=== PATIENT | female | born 1985 | race Caucasian/White ===

== ENCOUNTER → 2018-11-30 | Outpatient (CLI) | payer MEDICAID ==
--- NOTE | 2018-11-30 12:01 | Diagnostic Imaging Report ---
INDICATION: survey. TECHNIQUE: Multiple real-time grayscale images were obtained over the gravid uterus. COMPARISON: None. FINDINGS: There is a single live fetus in a transverse presentation, head to the maternal left. heart rate was recorded at 128 beats per minute. Placenta is posterior. Amniotic fluid volume is normal. survey demonstrates kidneys, bladder, and stomach to be unremarkable. brain is unremarkable. There is a four-chamber heart. There appears to be a two-vessel cord with normal insertion. spine is unremarkable. Biometrical measurements are as follows: Biparietal 5.17 cm, age 21 weeks 5 days. Head circumference 20.43 cm, age 22 weeks 4 days. Abdominal circumference 17.20 cm, age 22 weeks 2 days. Femur length 3.99 cm, age 23 weeks 0 days. Sonographic estimate age: 22 weeks 3 days. Sonographic estimated date of delivery: 04/02/2019. Estimated Weight: 505 gm (+/- 74 gm). LMP percentile: 60%. heart rate: 128 beats per minute. number: 1 of 1. IMPRESSION: Single live IUP at 22 weeks 3 days gestational age with an estimated date of confinement sonographically of 04/02/2019. The survey is unremarkable with the exception of a two-vessel cord noted. Dictated by: Dictated on workstation # [id number]
== END ==
LOC: RAD 10:09
PROVIDERS: ATTEND Obstetrics & Gynecology
DX: Z36.89 Encounter for other specified antenatal screening (principal); Z3A.22 22 weeks gestation of pregnancy
CPT/HCPCS: 76805

== ENCOUNTER 2019-01-26 21:49 | Outpatient (CLI) | payer MEDICAID ==
[~2019-01-26] VITALS: Ht 157.5 cm; Wt 67.8 kg
[2019-01-26] MEDS ORDERED: PREN1TAB79 PO (21:58)
[2019-01-26] MEDS ORDERED: FERR-84 PO (21:58)
--- NOTE | 2019-01-26 22:00 | NUR ---
RICCI ANGELA presented to unit via ambulation from ED, accompanied by family member, with c/o PRESSURE. RICCI ANGELA weighed, gowned, voided, and to bed. EFHM and TOCO applied, VS taken. RICCI ANGELA oriented to bed controls, call light, TV, heat, and A/C controls.
--- NOTE | 2019-01-26 22:08 | NUR ---
amnio negative. pt denies vaginal discharge, itching, odor, bleeding or leaking. No swelling noted on labia. sve done. closed/thick/high. noticed tick bite on right medial upper thigh see physical assessment. +FM. pt states has had lower abdominal and perineum pressure for weeks but noticed increased pressure and felt like "everything in the vagina" was opening when she went to the bathroom.
[2019-01-26 22:12] LABS: BILIRUBIN,URINE NEGATIVE (NEGATIVE); CLARITY,URINE VERY CLOUDY; COLOR,URINE YELLOW; GLUCOSE, URINE (UA) NEGATIVE (NEGATIVE); KETONES,URINE NEGATIVE (NEGATIVE); LEUKOCYTE ESTERASE ,URINE 1+ (NEGATIVE); NITRITE,URINE NEGATIVE (NEGATIVE); PH,URINE 8 (5-9); PROTEIN,URINE NEGATIVE (NEGATIVE); UROBILINOGEN,URINE NORMAL (NORMAL)
[2019-01-26 22:16] VITALS: BP 116/66
[2019-01-26 22:19] LABS: AMORPHOUS SEDIMENT,UR MOD AMOR PHOSPHATE /LPF; BACTERIA,URINE TRACE /HPF; WBC,URINE RARE /HPF
--- NOTE | 2019-01-26 22:33 | NUR ---
called and notified of pt's complaints, assessment, UA, and strip. dc orders received. pt to follow up with this week.
--- NOTE | 2019-01-26 22:36 | NUR ---
pt off external monitors. no contractions noted during this time. FHR 125-135 bpm. moderate variability noted.
--- NOTE | 2019-01-26 22:45 | NUR ---
discharge instructions read and reviewed with pt, pt verbalized understanding. [id number] pt ambulated off unit.
--- NOTE | 2019-01-27 21:14 | Physician Query-Final Dx ---
ORLANDO VALDEZ 01/27/19 2113: Final Diagnosis Give Final Diagnosis Please give Final Diagnosis Please give Final Diagnosis and add weeks of gestation JOSÉ ANTONIO FERREIRA DO 02/18/19 1748: Final Diagnosis Give Final Diagnosis 30 weeks pelvic pressure ORLANDO VALDEZ Jan 27, 2019 21:13 JOSÉ ANTONIO FERREIRA DO Feb 18, 2019 17:48
== END 2019-01-26 22:48 | disposition home or self-care (01) ==
LOC: WSo 21:49 → LDRP 21:52 → WSo 22:48
PROVIDERS: ATTEND Obstetrics & Gynecology
DX: O26.893 Other specified pregnancy related conditions, third trimester (principal); R10.2 Pelvic and perineal pain; Z3A.30 30 weeks gestation of pregnancy
CPT/HCPCS: 81000; 87088; 99213

== ENCOUNTER → 2019-02-19 | Outpatient (CLI) | payer BC, MEDICAID ==
[~2019-02-19] MED LIST: FERR-84 PO; PREN1TAB79 PO
--- NOTE | 2019-02-19 17:18 | Diagnostic Imaging Report ---
INDICATION: Gestational diabetes. TECHNIQUE: Multiple real-time grayscale images were obtained over the gravid uterus. COMPARISON: 02/11/2019. FINDINGS: A single live intrauterine fetus is seen measuring 34 weeks 2 days in size with normal interval growth compared to the prior study. Fetus is in cephalic presentation. Placenta is posterior and grade 2 with no evidence of previa. heart rate is 128 beats per minute. Cervical length is 5.7 cm. Biometrical measurements are as follows: Biparietal 8.23 cm, age 33 weeks 1 days. Head circumference 31.82 cm, age 35 weeks 6 days. Abdominal circumference 28.46 cm, age 32 weeks 4 days. Femur length 6.93 cm, age 35 weeks 4 days. Sonographic estimate age: 34 weeks 2 days. Sonographic estimated date of delivery: 03/31/2019. Estimated Weight: 2277 gm (+/- 332 gm). LMP percentile: 45%. heart rate: 128 beats per minute. number: 1 of 1. Biophysical profile was also performed. Fetus scored 2/2 in breathing, movements, posture and tone, and qualitative amniotic fluid. Amniotic fluid index was 12.1 cm. IMPRESSION: Single live intrauterine fetus measuring 34 weeks 2 days in size with normal interval growth compared to the prior study. Fetus is in cephalic presentation. biophysical profile score is 8/8. Dictated by: Dictated on workstation # [id number]
== END ==
LOC: RAD 15:15
PROVIDERS: ATTEND Nurse Practitioner Women's Health
DX: O24.419 Gestational diabetes mellitus in pregnancy, unspecified control (principal); Z3A.34 34 weeks gestation of pregnancy
CPT/HCPCS: 76805; 76819

== ENCOUNTER → 2019-03-11 | Outpatient (CLI) | payer BC, MEDICAID ==
--- NOTE | 2019-03-11 15:34 | Diagnostic Imaging Report ---
INDICATION: Evaluate growth. TECHNIQUE: Multiple real-time grayscale images were obtained over the gravid uterus. COMPARISON: 02/19/2019. FINDINGS: There is a single live fetus in a cephalic presentation. heart rate was recorded at 134 beats per minute. Placenta is posterior. Amniotic fluid index is 13.2 cm. Biophysical profile score is normal at 8/8. Biometrical measurements are as follows: Biparietal 8.86 cm, age 35 weeks 6 days. Head circumference 32.40 cm, age 36 weeks 5 days. Abdominal circumference 32.15 cm, age 36 weeks 1 days. Femur length 6.99 cm, age 35 weeks 6 days. Sonographic estimate age: 36 weeks 1 days. Sonographic estimated date of delivery: 04/07/2019. Estimated Weight: 2836 gm (+/- 414 gm). LMP percentile: 39%. heart rate: 134 beats per minute. number: 1 of 1. IMPRESSION: Single live IUP at approximately 36 weeks gestational age, showing normal interval growth. Biophysical profile score is normal at 8/8. Dictated by: Dictated on workstation # [id number]
== END ==
LOC: RAD 14:31
PROVIDERS: ATTEND Obstetrics & Gynecology
DX: O24.410 Gestational diabetes mellitus in pregnancy, diet controlled (principal); Z3A.36 36 weeks gestation of pregnancy; Q27.0 Congenital absence and hypoplasia of umbilical artery
CPT/HCPCS: 76805; 76819

== ENCOUNTER 2019-03-18 10:16 | Outpatient (CLI) | payer BC, MEDICAID ==
[~2019-03-18] VITALS: Ht 157.5 cm; Wt 71.7 kg
--- NOTE | 2019-03-18 10:05 | NUR ---
Arrived to unit via ambulation. pt c/o "losing mucus plug today, and I was supposed to see dr cabezas today but she is sick." Wt obtained and to room 318. Wt obtained, gowned and urine sample. Plan of care reviewed with pt. To bed and monitors on.
[2019-03-18 10:25] VITALS: BP 126/76
[2019-03-18 10:31] VITALS: BP 126/76
--- NOTE | 2019-03-18 10:54 | NUR ---
Dr Srinivasan notified of pt arrival, gestation, c/o, assessment, fhr pattern, no contractions noted. will continue to monitor for reactive tracing.
--- NOTE | 2019-03-18 11:30 | NUR ---
Rn to pt bedside and reviewed plan of care. reactive NST noted. pt had called office downstairs to request to be induced. Rn discussed with pt that an appt was made for her to see dr cabezas tomorrow in clinic for evaluation. pt tearful. RN asked pt if she had any other concerns or problems going on at this time and she reports "my back just hurts." pt denied needs from rn or for rn to call clinic to ask for pain medication for pt.
--- NOTE | 2019-03-18 11:45 | NUR ---
Discharge instructions explained, signed and copy to pt. pt reports understanding of instructions and denied questions. Pt ambulates self off unit to private vehicle with belongings in hand.
--- NOTE | 2019-03-19 09:49 | Physician Query-Final Dx ---
ZANA MAGUIRE 03/19/19 0949: Clinic Account Progress/Dx Physician Query: Please give diagnosis Please give # weeks gestation Date of Service Mar 18, 2019 at 10:16 SAMUEL GRIFFIN DO 03/21/19 1701: Clinic Account Progress/Dx DIAGNOSIS: Diagnosis 36 week iup Irregular contractions ZANA MAGUIRE Mar 19, 2019 09:49 SAMUEL GRIFFIN DO Mar 21, 2019 17:01
[2019-03-21] MEDS ORDERED: ACET-77 PO (07:32)
[2019-03-21] MEDS ORDERED: IBUP-1773 PO (08:42)
== END 2019-03-18 11:45 | disposition home or self-care (01) ==
LOC: WSo 10:16 → LDRP 10:16 → WSo 11:45
PROVIDERS: ATTEND Obstetrics & Gynecology
DX: O62.8 Other abnormalities of forces of labor (principal); Z3A.36 36 weeks gestation of pregnancy
CPT/HCPCS: 99212

== ENCOUNTER 2019-03-19 12:20 | Inpatient (IN) | payer BC, MEDICAID ==
[~2019-03-19] VITALS: Ht 157.5 cm; Wt 70.5 kg
[2019-03-19] VITALS (21 sets, daily range): BP systolic 100–166; BP diastolic 63–83
--- NOTE | 2019-03-19 12:20 | NUR ---
RICCI ANGELA presented to unit via AMBULATORY from DR FERREIRA OFFICE, accompanied by , with c/o LABOR. RICCI ANGELA weighed, gowned, voided, and to bed. EFHM and TOCO applied, VS taken. RICCI ANGELA oriented to bed controls, call light, TV, heat, and A/C controls.
[2019-03-19] MEDS ORDERED: NS IV 1000 ML 1,000 ML IV SCH (12:49)
[2019-03-19] MEDS ORDERED: NS IV 1000 ML 1,000 ML ONE (12:53)
[2019-03-19 13:20] LABS: BASOPHILS % (AUTO) 0 % (0-10); EOSINOPHILS # (AUTO) 0.1 10^3/uL (0.0-0.3); EOSINOPHILS % (AUTO) 1 % (0-10); HEMATOCRIT 35 % (35-52); HEMOGLOBIN 11.8 G/DL (11.5-16.0); LYMPHOCYTES # (AUTO) 1.6 X 10^3 (1.0-4.0); LYMPHOCYTES % (AUTO) 15 % (12-44); MEAN CORPUSCULAR HEMOGLOBIN 30 PG (25-34); MEAN CORPUSCULAR HGB CONC 34 G/DL (32-36); MEAN CORPUSCULAR VOLUME 90 FL (80-99); MEAN PLATELET VOLUME 10.1 FL (7.4-10.4); MONOCYTES # (AUTO) 0.5 X 10^3 (0.0-1.0); MONOCYTES % (AUTO) 5 % (0-12); NEUTROPHILS # (AUTO) 8.5 X 10^3 (1.8-7.8); NEUTROPHILS % (AUTO) 80 % (42-75); PLATELET COUNT 227 10^3/uL (130-400); RED CELL DISTRIBUTION WIDTH 13.5 % (10.0-14.5); WHITE BLOOD COUNT 10.7 10^3/uL (4.3-11.0)
[2019-03-19] MEDS ORDERED: OXYTOCIN/NORMAL SALINE 500 ML IV SCH ×2 (16:10→20:09)
--- NOTE | 2019-03-19 17:33 | NUR ---
THIS RN GIVE DR FERREIRA UPDATE PT REPORT. TORIE 4CM, PITOCIN ON 6, UC Q 2-3 MIN, RATING PAIN 5/10, BREATHING WELL WITH UC. DOES NOT WANT AN EPIDURAL, STATES SHE WOULD RATHER HAVE IV PAIN MED BUT DOES NOT WANT ANYTHING YET.
[2019-03-19] MEDS ORDERED: BUTORPHANOL INJ 2 MG/ML (STADOL) VIAL IV NR (17:45)
--- NOTE | 2019-03-19 18:52 | NUR ---
THIS RN GIVES DR FERREIRA UPDATED PT REPORT. SVE 5.5 CM. 1 DOSE OF STADOL ADMIN AT 1750. NO NEW ORDERS AT THIS TIME.
--- NOTE | 2019-03-19 19:05 | NUR ---
REPORT GIVEN TO JOSELIN ROWELL
[2019-03-19] MEDS ORDERED: MEPIVACAINE (CARBOCAINE) 2% 50 ML VIAL ONE (19:44)
[2019-03-19] MEDS ORDERED: MINERAL OIL CONCENTRATE 99.9% 15 ML UDC ONE (19:44)
[2019-03-19] MEDS ORDERED: BUTORPHANOL INJ 2 MG/ML (STADOL) VIAL IV ONE (19:45)
--- NOTE | 2019-03-19 20:00 | NUR ---
2000: Fundus massaged at this time. Fundus is firm and at umbilicus. Moderate bleeding noted. No clots expressed at this time. 2014: Fundus massaged at this time. Fundus is firm and at umbilicus. Moderate bleeding noted. No clots expressed at this time. 2029: Fundus massaged at this time. Fundus is firm and at umbilicus. Moderate bleeding noted. No clots expressed at this time. 2034: Pt states that she needs to void at this time. Pad and underwear put on. Pt helped to the bathroom with nurse assist. Pt. voids moderate amount of straw colored urine at this time. Pericare given and taken back to bed. 2044: Fundus massaged at this time. Fundus is firm and one under umbilicus. Moderate bleeding noted. One golfball size clot expressed at this time. 2100: Fundus massaged at this time. Fundus is firm and one under umbilicus. Moderate bleeding noted. No clots expressed at this time. 2129: Fundus massaged at this time. Fundus is firm and one under umbilicus. Moderate bleeding noted. No clots expressed at this time. 2200: Fundus massaged at this time. Fundus is firm and one under umbilicus. Moderate bleeding noted. No clots expressed at this time. Pt states that she is ready to be moved. 2214: Pt moved to via wheelchair. Pt voided again. Clean pad and underwear put. Chuxs pads applied to perineum. Pt back to bed and eating dinner.
--- NOTE | 2019-03-19 20:13 | OB Labor & Delivery Record ---
Vag Delivery Note Vag Delivery Note Date of Delivery: 03/19/19 Preoperative Diagnosis: Daily Gonzalez is a (33 /Para 8 /5 ,Gestational Age 37 4/7 weeks, GBS, non reassuring testing (variable deceleration) Postoperative Diagnosis: Same Surgeon: JOSÉ ANTONIO FERREIRA Orthotic/Prosthetic Practitioner: none Anesthesia: none Delivery Type: vaginal Findings: Viable male , apgars pending, weight pending Lacerations: none Intact placenta with 3 vessel cord. No nuchal cord, body cord or shoulder dystocia Estimated Blood Loss: 150 ml Complications: None Condition: Stable Description of Procedure: The patient is a 33 year old female who presented for labor augmentation due to contractions and variable deceleration in the office. She was admitted and informed consent was obtained. Her labor course was remarkable for arom and pitocin augmentation, She progressed to complete dilatation and began to push. She was then set up for delivery. The 's head was delivered atraumatically in the JAMIE position. The shoulders and remainder of the 's body were then delivered without difficulty. Upon delivery, the head was held below the level of the perineum and the mouth and nares were bulb suctioned. The cord was doubly clamped and cut and the was handed off to the pediatric staff. An intact placenta with 3-vessel cord delivered via [place] and there was found to be minimal bleeding.~ Vigorous fundal massage was performed and the fundus was found to be firm. IV oxytocin was given. Examination of the vagina and perineum revealed no laceration. Following the delivery, sponge, instrument and needle counts were correct. Mom and baby were both in stable condition in the labor suite. Vitals - Labs Vital Signs - I&O Vital Signs Date Time Temp Pulse Resp B/P (MAP) Pulse Ox O2 Delivery O2 Flow Rate FiO2 03/19/19 19:00 67 100/65 (77) Room Air 03/19/19 18:45 36.1 68 108/68 (81) Room Air 03/19/19 18:30 72 103/64 (77) Room Air 03/19/19 18:15 77 103/63 (76) Room Air 03/19/19 18:00 63 112/66 (81) Room Air 03/19/19 17:45 68 112/78 (89) Room Air 03/19/19 17:30 36.4 72 20 111/77 (88) Room Air 03/19/19 17:15 69 110/75 (87) Room Air 03/19/19 17:00 70 110/71 (84) Room Air 03/19/19 16:45 73 109/72 (84) Room Air 03/19/19 16:20 36.3 78 18 116/74 (88) 03/19/19 13:40 36.2 79 16 99 Room Air 03/19/19 12:23 36.7 79 18 121/81 (94) 99 Labs Laboratory Tests 03/19/19 13:00: White Blood Count 10.7, Red Blood Count 3.90L, Hemoglobin 11.8, Hematocrit 35, Mean Corpuscular Volume 90, Mean Corpuscular Hemoglobin 30, Mean Corpuscular Hemoglobin Concent 34, Red Cell Distribution Width 13.5, Platelet Count 227, Mean Platelet Volume 10.1, Neutrophils (%) (Auto) 80H, Lymphocytes (%) (Auto) 15, Monocytes (%) (Auto) 5, Eosinophils (%) (Auto) 1, Basophils (%) (Auto) 0, Neutrophils # (Auto) 8.5H, Lymphocytes # (Auto) 1.6, Monocytes # (Auto) 0.5, Eosinophils # (Auto) 0.1, Basophils # (Auto) 0.0, Glucose Level 74 JOSÉ ANTONIO FERREIRA DO Mar 19, 2019 20:13
[2019-03-19] MEDS ORDERED: BENZOCAINE/MENTHOL (DERMOPLAST) 56 ML CAN TP PRN (20:15)
[2019-03-19] MEDS ORDERED: TETANUS,DIPTH,PERTUSS P/F (BOOSTRIX) 0.5 ML VIAL IM ONE (20:15)
[2019-03-19] MEDS ORDERED: WITCH HAZEL(TUCKS) 40 EA JAR TOP PRN (20:15)
[2019-03-19] MEDS ORDERED: MEASLES,MUMPS,RUBELLA 1 EA INJ SQ ONE (20:15)
[2019-03-19] MEDS ORDERED: CATHETER FLUSH 10 ML SYR IV SCH (22:00)
[2019-03-19] MEDS: ACETAMINOPHEN 500 MG TAB (TYLENOL) PO SCH (22:12)
[2019-03-19] MEDS: DOCUSATE SODIUM 100 MG (COLACE) CAP PO SCH (22:13)
[2019-03-20 00:30] VITALS: BP 95/50
[2019-03-20 04:00] VITALS: BP 93/62
[2019-03-20] MEDS: ACETAMINOPHEN 500 MG TAB (TYLENOL) PO SCH ×3 (05:57→22:19)
[2019-03-20 06:14] LABS: BASOPHILS % (AUTO) 0 % (0-10); EOSINOPHILS # (AUTO) 0.1 10^3/uL (0.0-0.3); EOSINOPHILS % (AUTO) 0 % (0-10); HEMATOCRIT 36 % (35-52); LYMPHOCYTES # (AUTO) 1.9 X 10^3 (1.0-4.0); LYMPHOCYTES % (AUTO) 13 % (12-44); MEAN CORPUSCULAR HEMOGLOBIN 30 PG (25-34); MEAN CORPUSCULAR HGB CONC 33 G/DL (32-36); MEAN CORPUSCULAR VOLUME 91 FL (80-99); MEAN PLATELET VOLUME 9.8 FL (7.4-10.4); MONOCYTES # (AUTO) 0.7 X 10^3 (0.0-1.0); MONOCYTES % (AUTO) 5 % (0-12); NEUTROPHILS # (AUTO) 12.2 X 10^3 (1.8-7.8); NEUTROPHILS % (AUTO) 82 % (42-75); PLATELET COUNT 233 10^3/uL (130-400); RED CELL DISTRIBUTION WIDTH 13.9 % (10.0-14.5); WHITE BLOOD COUNT 14.9 10^3/uL (4.3-11.0)
[2019-03-20] MEDS ORDERED: PRENATAL VITAMIN 1 EA TAB PO SCH (07:00)
[2019-03-20 08:23] VITALS: BP 100/66
[2019-03-20] MEDS: DOCUSATE SODIUM 100 MG (COLACE) CAP PO SCH ×2 (08:25→20:30)
[2019-03-20] MEDS: FERROUS SULF 325 MG (IRON) TAB PO SCH (08:25)
--- NOTE | 2019-03-20 08:32 | NUR ---
PT IN BED, HOLDING , REQUESTING TO TAKE A SHOWER. VS OBTAINED. MEDS GIVEN PO; SEE EMAR FOR FURTHER. IV DC'D. GAUZE AND BAND AID APPLIED OVER SITE. INITIAL SHIFT ASSESSMENT COMPLETED; SEE INTERVENTION. SHOWER SET UP, INFANT TO NURSERY. PT DENIES ANY FURTHER NEEDS AT THIS TIME.
--- NOTE | 2019-03-20 10:42 | Postpartum Progress Note ---
Note Note Day # 1 s/p Subjective: Patient is without complaints. Ambulating, voiding. Tolerating a regular diet w ithout nausea or vomiting. Normal lochia. Pain is well controlled with oral pain medications. breast and bottle feeding. Objective: 03/20/19 03/20/19 03/20/19 00:30 04:00 08:23 Temp 36.9 36.1 36.8 Pulse 75 74 73 Resp 16 18 18 B/P (MAP) 95/50 (65) 93/62 (72) 100/66 (77) Pulse Ox 96 97 O2 Delivery Room Air Room Air Room Air Laboratory Tests Test 03/19/19 13:00 03/20/19 05:34 03/20/19 05:54 Range/Units White Blood Count 10.7 14.9 H 4.3-11.0 10^3/uL Red Blood Count 3.90 L 3.97 L 4.35-5.85 10^6/uL Hemoglobin 11.8 12.0 11.5-16.0 G/DL Hematocrit 35 36 35-52 % Mean Corpuscular Volume 90 91 80-99 FL Mean Corpuscular Hemoglobin 30 30 25-34 PG Mean Corpuscular Hemoglobin Concent 34 33 32-36 G/DL Red Cell Distribution Width 13.5 13.9 10.0-14.5 % Platelet Count 227 233 130-400 10^3/uL Mean Platelet Volume 10.1 9.8 7.4-10.4 FL Neutrophils (%) (Auto) 80 H 82 H 42-75 % Lymphocytes (%) (Auto) 15 13 12-44 % Monocytes (%) (Auto) 5 5 0-12 % Eosinophils (%) (Auto) 1 0 0-10 % Basophils (%) (Auto) 0 0 0-10 % Neutrophils # (Auto) 8.5 H 12.2 H 1.8-7.8 X 10^3 Lymphocytes # (Auto) 1.6 1.9 1.0-4.0 X 10^3 Monocytes # (Auto) 0.5 0.7 0.0-1.0 X 10^3 Eosinophils # (Auto) 0.1 0.1 0.0-0.3 10^3/uL Basophils # (Auto) 0.0 0.0 0.0-0.1 10^3/uL Glucose Level 74 70-105 MG/DL Glucometer 83 70-110 MG/DL Physical Exam: General - Alert and oriented, no apparent distress Abdomen - Soft, appropriately tender to palpation, non-distended, fundus firm at umbilicus Extremities - no edema, negative Matt's bilaterally Assessment: 1. post- day # 1, status post spontaneous vaginal delivery. Recovering well, hemodynamically stable 2. GDM A1, stable Plan: Routine care. Encourage breast feeding. Encourage ambulation. Ferrous sulfate supplementation. Plan for discharge tomorrow or to parent room Vitals - Labs Vital Signs - I&O Vital Signs Date Time Temp Pulse Resp B/P (MAP) Pulse Ox O2 Delivery O2 Flow Rate FiO2 03/20/19 08:23 36.8 73 18 100/66 (77) 97 Room Air 03/20/19 04:00 36.1 74 18 93/62 (72) Room Air 03/20/19 00:30 36.9 75 16 95/50 (65) 96 Room Air 03/19/19 21:04 36.8 78 120/73 (89) Room Air 03/19/19 20:51 68 103/73 (83) Room Air 03/19/19 20:34 37.2 76 125/71 (89) Room Air 03/19/19 20:19 79 127/76 (93) Room Air 03/19/19 20:17 78 124/69 (87) Room Air 03/19/19 20:04 36.5 77 126/70 (88) Room Air 03/19/19 19:50 72 166/67 (100) Room Air 03/19/19 19:34 36.7 67 112/83 (93) Room Air 03/19/19 19:00 67 100/65 (77) Room Air 03/19/19 18:45 36.1 68 108/68 (81) Room Air 03/19/19 18:30 72 103/64 (77) Room Air 03/19/19 18:15 77 103/63 (76) Room Air 03/19/19 18:00 63 112/66 (81) Room Air 03/19/19 17:45 68 112/78 (89) Room Air 03/19/19 17:30 36.4 72 20 111/77 (88) Room Air 03/19/19 17:15 69 110/75 (87) Room Air 03/19/19 17:00 70 110/71 (84) Room Air 03/19/19 16:45 73 109/72 (84) Room Air 03/19/19 16:20 36.3 78 18 116/74 (88) 03/19/19 13:40 36.2 79 16 99 Room Air 03/19/19 12:23 36.7 79 18 121/81 (94) 99 Labs Laboratory Tests 03/19/19 13:00: White Blood Count 10.7, Red Blood Count 3.90L, Hemoglobin 11.8, Hematocrit 35, Mean Corpuscular Volume 90, Mean Corpuscular Hemoglobin 30, Mean Corpuscular Hemoglobin Concent 34, Red Cell Distribution Width 13.5, Platelet Count 227, Ninfa n Platelet Volume 10.1, Neutrophils (%) (Auto) 80H, Lymphocytes (%) (Auto) 15, Monocytes (%) (Auto) 5, Eosinophils (%) (Auto) 1, Basophils (%) (Auto) 0, Neutrophils # (Auto) 8.5H, Lymphocytes # (Auto) 1.6, Monocytes # (Auto) 0.5, Eosinophils # (Auto) 0.1, Basophils # (Auto) 0.0, Glucose Level 74 03/20/19 05:34: White Blood Count 14.9H, Red Blood Count 3.97L, Hemoglobin 12.0, Hematocrit 36, Mean Corpuscular Volume 91, Mean Corpuscular Hemoglobin 30, Mean Corpuscular Hemoglobin Concent 33, Red Cell Distribution Width 13.9, Platelet Count 233, Mean Platelet Volume 9.8, Neutrophils (%) (Auto) 82H, Lymphocytes (%) (Auto) 13, Monocytes (%) (Auto) 5, Eosinophils (%) (Auto) 0, Basophils (%) (Auto) 0, Neutrophils # (Auto) 12.2H, Lymphocytes # (Auto) 1.9, Monocytes # (Auto) 0.7, Eosinophils # (Auto) 0.1, Basophils # (Auto) 0.0 03/20/19 05:54: Glucometer 83 JOSÉ ANTONIO FERREIRA DO Mar 20, 2019 10:42
--- NOTE | 2019-03-20 10:51 | NUR ---
DR. FERREIRA TO PT'S BEDSIDE.
[2019-03-20 12:11] VITALS: BP 95/64
--- NOTE | 2019-03-20 14:15 | NUR ---
PT AT THIS TIME. SCHEDULED TYLENOL GIVEN PO; SEE EMAR FOR FURTHER. S/O AT THE BEDSIDE. NO NEEDS VOICED.
[2019-03-20 17:54] VITALS: BP 107/74
--- NOTE | 2019-03-20 18:00 | NUR ---
PT IN BED, HOLDING . VS OBTAINED. PT DENIES ANY NEEDS AT THIS TIME. S/O AT THE BEDSIDE. CALL LIGHT WITHIN REACH.
[2019-03-20 20:25] VITALS: BP 102/72
[2019-03-21 02:30] VITALS: BP 100/65
[2019-03-21] MEDS: ACETAMINOPHEN 500 MG TAB (TYLENOL) PO SCH (06:39)
--- NOTE | 2019-03-21 07:28 | Postpartum Progress Note ---
Note Note Day # 2 s/p GDM A1 Subjective: Patient is without complaints. Ambulating, voiding. Tolerating a regular diet without nausea or vomiting. Normal lochia. Pain is well controlled with oral pain medications. breast and bottle feeding. Objective: 03/20/19 03/21/19 20:25 02:30 Temp 36.9 36.4 Pulse 67 61 Resp 20 16 B/P (MAP) 102/72 (82) 100/65 (77) Pulse Ox 96 96 O2 Delivery Room Air Room Air Physical Exam: General - Alert and oriented, no apparent distress Abdomen - Soft, appropriately tender to palpation, non-distended, fundus firm at umbilicus Extremities - no edema, negative Matt's bilaterally Assessment: 1. post- day # 2, status post vaginal delivery. Recovering well, hemodynamically stable Plan: Routine care. Encourage breast feeding. Encourage ambulation. Ferrous sulfate supplementation. Plan for discharge today Vitals - Labs Vital Signs - I&O Vital Signs Date Time Temp Pulse Resp B/P (MAP) Pulse Ox O2 Delivery O2 Flow Rate FiO2 03/21/19 02:30 36.4 61 16 100/65 (77) 96 Room Air 03/20/19 20:25 36.9 67 20 102/72 (82) 96 Room Air 03/20/19 17:54 37.0 75 18 107/74 (85) 95 Room Air 03/20/19 12:11 36.8 70 18 95/64 (74) 97 Room Air 03/20/19 08:23 36.8 73 18 100/66 (77) 97 Room Air Labs Laboratory Tests 03/21/19 06:37: Glucometer 92 JOSÉ ANTONIO FERREIRA DO Mar 21, 2019 07:28
[2019-03-21] MEDS ORDERED: ACET-77 PO (07:32)
--- NOTE | 2019-03-21 07:38 | Short Stay Summary ---
Discharge Summary Hospital Course Was the Problem List Reviewed?: Yes Final Diagnosis: gestational diabetes, A1; non reassuring velma Hospital Course Date of Admission: Mar 19, 2019 at 12:20 Admission Diagnosis : Family Physician/Provider: Shanti Ferreira DO Date of Discharge: 03/21/19 Discharge Diagnosis: gestational diabetes, A1 Non reassuring testing (variable deceleration) Vaginal delivery Hospital Course: Patient was admitted from clinic. She was cesario irregularly and had routine non stress test due to gestational diabetes. She had a spontaneous variable decelerations and no accelerations during the non stress test. She was admitted to the hospital. Blood sugar was normal. She had AROM, IV Fluids and then augmentation with pitocin. She received 2 doses of IV stadol but declined epidural She then had an uncomplicated vaginal delivery. She was admitted to womens services after the delivery and had routine post course. post hemoglobin was 12 and glucose was 84. she was discharged to home on post day 2 in a stable condition. Labs and Pending Lab Test: Laboratory Tests 03/21/19 06:37: Glucometer 92 Home Meds Active Reported Iron (Ferrous Sulfate) 325 Mg Tablet 325 Mg PO DAILY Vitamins ( Vit W-Ca,Fe,FA(<1 mg)) 1 Each Tablet 1 Each PO DAILY Assessment/Pt Instructions Uncomplicated vaginal delivery Discharged to home Discharge Instructions Discharge Diet: No Restrictions Activity as Tolerated: Yes Discharge Physical Examination General Appearance: Alert Respiratory: Clear to Auscultation, Normal Air Movement Cardiovascular: Regular Rate Allergies: Coded Allergies: aspirin (Verified Allergy, Unknown, 01/26/19) latex (Verified Allergy, Unknown, 01/26/19) naproxen (Verified Allergy, Unknown, 01/26/19) red dye (Verified Allergy, Unknown, 01/26/19) Discharge Summary Date of Admission Mar 19, 2019 at 12:20 Date of Discharge 03/21/2019 Discharge Date: Mar 21, 2019 Admission Diagnosis Gestational diabetes, A1 non reassuring testing grand multipara Vaginal delivery Consults/Procedures Procedures vaginal delivery Discharge Diagnosis gestational diabetes A1 grand multipara vaginal delivery non reassuring testing Clinical Quality Measures DVT/VTE Risk/Contraindication: Risk Factor Score Per Nursin RFS Level Per Nursing on Admit: 1=Low/No VTE PPX SHANTI FERREIRA DO Mar 21, 2019 07:37
--- NOTE | 2019-03-21 07:39 | Discharge Inst-Women's Service ---
Discharge Inst-Women's Serv Depart Medication/Instructions Final Diagnosis vaginal delivery gestational diabetes A1 grand multipara non reassuring testing Problems Reviewed?: Yes Consults/Follow Up Additional Follow Up: Yes (6 weeks) Activity Activity: Activity as Tolerated Driving Instructions: You May Drive NO SMOKING: NO SMOKING Nothing Inside Vagina: No Douching, No [place], No Tampons Diet Discharge Diet: No Restrictions Symptoms to Report to : Bleeding Excessive, Pain Increased, Fever Over 101 Degrees F, Vaginal Bleeding Increase, Cramps in Feet or Legs, Vaginal Discharge Foul For Any Problems or Questions: Contact Your Physician JOSÉ ANTONIO FERREIRA DO Mar 21, 2019 07:39
[2019-03-21] MEDS ORDERED: IBUP-1773 PO (08:42)
[2019-03-21] MEDS ORDERED: IBUPROFEN 600 MG (MOTRIN) TAB PO ONE (09:19)
[2019-03-21] MEDS: FERROUS SULF 325 MG (IRON) TAB PO SCH (09:28)
[2019-03-21] MEDS: DOCUSATE SODIUM 100 MG (COLACE) CAP PO SCH (09:28)
[2019-03-21 09:35] VITALS: BP 107/72
[2019-03-21] MEDS ORDERED: IBUPROFEN 800 MG (MOTRIN) TAB PO SCH (12:00)
== END 2019-03-21 09:35 | disposition home or self-care (01) | DRG 807 ==
LOC: LDRP 12:20
PROVIDERS: ADMIT Obstetrics & Gynecology; ATTEND Obstetrics & Gynecology
PROC: 10E0XZZ Delivery of Products of Conception, External Approach (ICD-10-PCS; principal; 2019-03-19)
DX: O76 Abnormality in fetal heart rate and rhythm complicating labor and delivery (principal); Z37.0 Single live birth; O24.429 Gestational diabetes mellitus in childbirth, unspecified control; O99.824 Streptococcus B carrier state complicating childbirth; Z3A.37 37 weeks gestation of pregnancy
CPT/HCPCS: 36415; 82947; 82962; 85025; 86850; 86900; 86901

== ENCOUNTER → 2020-08-24 | Outpatient (CLI) | payer BC, MEDICAID ==
[~2020-08-24] MED LIST changes: +ACET-78 PO; +IBUP-1773 PO
--- NOTE | 2020-08-24 16:07 | Diagnostic Imaging Report ---
INDICATION: patient, survey. TECHNIQUE: Multiple real-time grayscale images were obtained over the gravid uterus. COMPARISON: None during this . FINDINGS: A single live intrauterine fetus is seen measuring 20 weeks 6 days by composite measurements. Fetus is in breech presentation at this time. Amniotic fluid is qualitatively normal. Cervical length is 6.9 cm. There is no evidence of placenta previa, the tip of the placenta is about 3.7 cm above the internal cervical os. heart rate was 151 bpm. survey showed normal-appearing kidneys and bladder and stomach. Normal-appearing intracranial ventricles are seen. Four-chamber heart view was unremarkable. Three-vessel cord and cord insertion appear unremarkable. Views of the spine were unremarkable. Biometrical measurements are as follows: Biparietal 5.14 cm, age 21 weeks 5 days. Head circumference 18.46 cm, age 20 weeks 6 days. Abdominal circumference 15.40 cm, age 20 weeks 5 days. Femur length 3.19 cm, age 20 weeks 0 days. Sonographic estimate age: 20 weeks 6 days. Sonographic estimated date of delivery: 01/05/2021. Estimated Weight: 350 gm (+/- 51 gm). LMP percentile: 60%. heart rate: 151 beats per minute. number: 1 of 1. IMPRESSION: Single live intrauterine fetus measuring 20 weeks 6 days by composite measurements. survey showed no detectable abnormalities. Dictated by: Dictated on workstation # [id number]
== END ==
LOC: RAD 10:00
PROVIDERS: ATTEND Obstetrics & Gynecology
DX: Z36.89 Encounter for other specified antenatal screening (principal); Z3A.20 20 weeks gestation of pregnancy
CPT/HCPCS: 76805

== ENCOUNTER → 2020-11-15 | Outpatient (CLI) | payer OTHER, MEDICAID ==
--- NOTE | 2020-11-15 15:46 | Diagnostic Imaging Report ---
INDICATION: Gestational diabetes. TECHNIQUE: Multiple real-time grayscale images were obtained over the gravid uterus. COMPARISON: None. FINDINGS: There is a single live fetus in a cephalic presentation. heart rate was recorded at 132 BPM. Placenta is anterior. Amniotic fluid index is 11.8 cm. No complicating features are detected. Biometrical measurements are as follows: Biparietal 8.58 cm, age 34 weeks 5 days. Head circumference 31.23 cm, age 35 weeks 0 days. Abdominal circumference 28.25 cm, age 32 weeks 2 days. Femur length 6.19 cm, age 32 weeks 1 days. Sonographic estimate age: 33 weeks 4 days. Sonographic estimated date of delivery: 12/30/20. Estimated Weight: 2029 gm (+/- 296 gm). LMP percentile: 62%. heart rate: 132 beats per minute. number: 1 of 1. IMPRESSION: Single live IUP at 33 to 34 weeks gestational age with estimated date of confinement sonographically of 12/30/2020. No complicating features are detected. Dictated by: Dictated on workstation # [id number]
== END ==
LOC: RAD 14:30
PROVIDERS: ATTEND Obstetrics & Gynecology
DX: O24.419 Gestational diabetes mellitus in pregnancy, unspecified control (principal); Z3A.33 33 weeks gestation of pregnancy
CPT/HCPCS: 76816

== ENCOUNTER → 2020-12-18 | Outpatient (CLI) | payer MEDICAID, OTHER ==
--- NOTE | 2020-12-18 18:04 | Diagnostic Imaging Report ---
INDICATION: Supervision of high-risk . TECHNIQUE: Multiple real-time grayscale images were obtained over the gravid uterus. The fetus was observed for purposes of a nonstress biophysical profile evaluation. COMPARISON: None. FINDINGS: There is presence of a single viable intrauterine , currently in transverse orientation, head to the maternal right. Normal amount of amniotic fluid, index at 13.57. Placenta is circumferential and without evidence for previa. Cervical length at 5.9 cm. Maternal ovaries are not visualized. Full anatomical evaluation is not performed on this study. Biometrical measurements are as follows: Biparietal 8.94 cm, age 36 weeks 2 days. Head circumference 33.19 cm, age 37 weeks 6 days. Abdominal circumference 31.95 cm, age 36 weeks 0 days. Femur length 7.31 cm, age 37 weeks 3 days. Sonographic estimate age: 37 weeks 0 days. Sonographic estimated date of delivery: 01/08/2021. Estimated Weight: 2960 gm (+/- 432 gm). LMP percentile: 49%. heart rate: 136 beats per minute. number: 1 of 1. Biophysical Profile Scoring: breathin Body movement: 2 tone: 2 Amniotic fluid: 2 Total BPP Score: 8/8 IMPRESSION: 1. Single viable intrauterine , currently in transverse orientation. Sonographic estimated age at approximately 37 weeks 0 days for an estimated date of delivery of January 08, 2021. No definitive abnormalities demonstrated at the limited assessment given the advanced age. 2. Normal biophysical profile score. Dictated by: Dictated on workstation # [id number]
== END ==
LOC: RAD 13:30
PROVIDERS: ATTEND Obstetrics & Gynecology
DX: O09.293 Supervision of pregnancy with other poor reproductive or obstetric history, third trimester (principal); Z3A.37 37 weeks gestation of pregnancy
CPT/HCPCS: 76805; 76819

== ENCOUNTER 2020-12-27 20:10 | Inpatient (IN) | payer MEDICAID, OTHER ==
[~2020-12-27] VITALS: Ht 157.5 cm; Wt 75.0 kg
[2020-12-27 20:30] VITALS: BP 128/82
[2020-12-27] MEDS ORDERED: MINERAL OIL CONCENTRATE 99.9% 15 ML UDC TOP PRN (20:30)
[2020-12-27 20:48] LABS: BASOPHILS % (AUTO) 0 % (0-10); EOSINOPHILS # (AUTO) 0.1 10^3/uL (0.0-0.3); EOSINOPHILS % (AUTO) 1 % (0-10); HEMATOCRIT 32 % (35-52); LYMPHOCYTES # (AUTO) 2.1 10^3/uL (1.0-4.0); LYMPHOCYTES % (AUTO) 17 % (12-44); MEAN CORPUSCULAR HEMOGLOBIN 30 pg (25-34); MEAN CORPUSCULAR HGB CONC 34 g/dL (32-36); MEAN CORPUSCULAR VOLUME 89 fL (80-99); MEAN PLATELET VOLUME 9.9 fL (9.0-12.2); MONOCYTES # (AUTO) 0.7 10^3/uL (0.0-1.0); MONOCYTES % (AUTO) 6 % (0-12); NEUTROPHILS % (AUTO) 75 % (42-75); PLATELET COUNT 224 10^3/uL (130-400); WHITE BLOOD COUNT 11.9 10^3/uL (4.3-11.0)
[2020-12-27 20:50] VITALS: BP 113/63
[2020-12-27 21:10] VITALS: BP 111/69
[2020-12-27 21:30] VITALS: BP 114/68
[2020-12-27] MEDS: LACTATED RINGERS 1,000 ML IV SCH ×2 (21:43→22:15)
[2020-12-27] MEDS ORDERED: CATHETER FLUSH 10 ML SYR IV SCH (22:00)
[2020-12-28] VITALS (19 sets, daily range): BP systolic 96–143; BP diastolic 53–89
[2020-12-28] MEDS ORDERED: ACETAMINOPHEN 500 MG TAB (TYLENOL) ONE (01:44)
[2020-12-28] MEDS ORDERED: ZOLPIDEM 5 MG (AMBIEN) TAB ONE (01:48)
[2020-12-28] MEDS ORDERED: ACETAMINOPHEN 500 MG TAB (TYLENOL) PO ONE (01:51)
[2020-12-28] MEDS ORDERED: ZOLPIDEM 5 MG (AMBIEN) TAB PO ONE (01:52)
[2020-12-28] MEDS ORDERED: BUTORPHANOL INJ 2 MG/ML (STADOL) VIAL ONE (06:10)
[2020-12-28] MEDS ORDERED: NALOXONE 0.4 MG/ML 1 ML (NARCAN) VIAL ONE (06:11)
[2020-12-28] MEDS ORDERED: NALOXONE 0.4 MG/ML 1 ML (NARCAN) VIAL IV ONE (06:15)
[2020-12-28] MEDS ORDERED: BUTORPHANOL INJ 2 MG/ML (STADOL) VIAL IV ONE (06:15)
[2020-12-28] MEDS: LACTATED RINGERS 1,000 ML IV SCH (06:15)
[2020-12-28] MEDS ORDERED: OXYTOCIN PRE-MIX DRIP 500 ML IV ONE ×2 (06:26→07:23)
[2020-12-28] MEDS: OXYTOCIN PRE-MIX DRIP 500 ML IV SCH ×2 (06:44→07:35)
--- NOTE | 2020-12-28 08:28 | Operative Report ---
Operative Report Date of Procedure/Surgery Dec 28, 2020 Surgeon (s) SAE EDWARD MD Social Professionals (s): none Post-Operative Diagnosis Spontaneous /precipitous vaginal delivery with retained placenta Procedure Performed Delivery of placenta Description of Procedure Estimated blood loss (mL): 100 cc Specimen(s) collected/removed Placenta with three-vessel cord Description of the Procedure I was called to assist with patient Dr. Ferreira who had a precipitous vaginal delivery. Dr. Ferreira was unavailable. The baby was doing well. The placenta was retained. I gowned and gloved pelvic exam revealed several small abrasions from the delivery of the baby. Umbilical cord was still attached to the placenta which was retained in the uterus. The Forbes-Mauro maneuver was performed freeing the placenta and allowing for its delivery and removal intact. Cervix vagina rectum and perineum were examined and found intact except for several small abrasion at the introitus and in the posterior fourchette. His abrasions were hemostatic and did not require repair Blood loss for the delivery of the placenta was in the range of 100 cc. The patient tolerated the delivery of the placenta well and recovered in the LDR with her baby. Findings of the Procedure As above Allergies and Home Medications Allergies Coded Allergies: aspirin (Verified Allergy, Unknown, 01/26/19) latex (Verified Allergy, Unknown, 01/26/19) naproxen (Verified Allergy, Unknown, 01/26/19) red dye (Verified Allergy, Unknown, 01/26/19) Home Medications Acetaminophen 500 Mg Tablet, 1,000 MG PO Q8HR Prescribed by: JOSÉ ANTONIO FERREIRA on 03/21/19 0732 Ferrous Sulfate 325 Mg Tablet, 325 MG PO DAILY, (Reported) Ibuprofen 600 Mg Tablet, 600 MG PO Q6H PRN for PAIN-MILD Prescribed by: JOSÉ ANTONIO FERREIRA on 03/21/19 0842 Vit W-Ca,Fe,FA(<1 mg) 1 Each Tablet, 1 EACH PO DAILY, (Reported) Patient Home Medication List Home Medication List Reviewed: SAE Hendricks MD Dec 28, 2020 08:28
[2020-12-28] MEDS ORDERED: MEASLES,MUMPS,RUBELLA 1 EA INJ SQ ONE (08:30)
[2020-12-28] MEDS ORDERED: WITCH HAZEL(TUCKS) 40 EA JAR TOP PRN (08:30)
[2020-12-28] MEDS ORDERED: TETANUS,DIPTH,PERTUSS P/F (BOOSTRIX) 0.5 ML VIAL IM ONE (08:30)
[2020-12-28] MEDS ORDERED: BENZOCAINE/MENTHOL (DERMOPLAST) 56 ML CAN TP PRN (08:30)
[2020-12-28] MEDS: DOCUSATE SODIUM 100 MG (COLACE) CAP PO SCH ×2 (10:01→20:15)
[2020-12-28] MEDS: ACETAMINOPHEN 500 MG TAB (TYLENOL) PO PRN ×2 (12:10→20:15)
[2020-12-28] MEDS ORDERED: CATHETER FLUSH 10 ML SYR IV SCH (14:00)
[2020-12-29 04:49] VITALS: BP 97/57
[2020-12-29] MEDS: ACETAMINOPHEN 500 MG TAB (TYLENOL) PO PRN (04:49)
[2020-12-29 05:41] LABS: BASOPHILS # (AUTO) 0.1 10^3/uL (0.0-0.1); BASOPHILS % (AUTO) 1 % (0-10); EOSINOPHILS # (AUTO) 0.2 10^3/uL (0.0-0.3); EOSINOPHILS % (AUTO) 2 % (0-10); HEMATOCRIT 30 % (35-52); HEMOGLOBIN 9.9 g/dL (11.5-16.0); LYMPHOCYTES # (AUTO) 2.4 10^3/uL (1.0-4.0); LYMPHOCYTES % (AUTO) 20 % (12-44); MEAN CORPUSCULAR HEMOGLOBIN 31 pg (25-34); MEAN CORPUSCULAR HGB CONC 33 g/dL (32-36); MEAN CORPUSCULAR VOLUME 92 fL (80-99); MEAN PLATELET VOLUME 9.9 fL (9.0-12.2); MONOCYTES # (AUTO) 0.6 10^3/uL (0.0-1.0); MONOCYTES % (AUTO) 5 % (0-12); NEUTROPHILS # (AUTO) 8.4 10^3/uL (1.8-7.8); NEUTROPHILS % (AUTO) 71 % (42-75); PLATELET COUNT 211 10^3/uL (130-400); WHITE BLOOD COUNT 11.8 10^3/uL (4.3-11.0)
[2020-12-29 08:15] VITALS: BP 104/63
[2020-12-29] MEDS: DOCUSATE SODIUM 100 MG (COLACE) CAP PO SCH (08:19)
--- NOTE | 2020-12-29 08:59 | Postpartum Progress Note ---
Note Note Day # 1 s/p precipitous Subjective: Patient is without complaints. Ambulating, voiding. Tolerating a regular diet without nausea or vomiting. Normal lochia. Pain is well controlled with oral pain medications. [] feeding. [] Objective: 12/28/20 12/29/20 12/29/20 23:15 04:49 08:15 Temp 36.1 36.1 36.3 Pulse 73 73 75 Resp 18 18 18 B/P (MAP) 96/53 (67) 97/57 (70) 104/63 (77) Pulse Ox 96 97 98 O2 Delivery Room Air Room Air Room Air Laboratory Tests Test 12/29/20 05:31 Range/Units White Blood Count 11.8 H 4.3-11.0 10^3/uL Red Blood Count 3.24 L 3.80-5.11 10^6/uL Hemoglobin 9.9 L 11.5-16.0 g/dL Hematocrit 30 L 35-52 % Mean Corpuscular Volume 92 80-99 fL Mean Corpuscular Hemoglobin 31 25-34 pg Mean Corpuscular Hemoglobin Concent 33 32-36 g/dL Red Cell Distribution Width 12.6 10.0-14.5 % Platelet Count 211 130-400 10^3/uL Mean Platelet Volume 9.9 9.0-12.2 fL Immature Granulocyte % (Auto) 1 % Neutrophils (%) (Auto) 71 42-75 % Lymphocytes (%) (Auto) 20 12-44 % Monocytes (%) (Auto) 5 0-12 % Eosinophils (%) (Auto) 2 0-10 % Basophils (%) (Auto) 1 0-10 % Neutrophils # (Auto) 8.4 H 1.8-7.8 10^3/uL Lymphocytes # (Auto) 2.4 1.0-4.0 10^3/uL Monocytes # (Auto) 0.6 0.0-1.0 10^3/uL Eosinophils # (Auto) 0.2 0.0-0.3 10^3/uL Basophils # (Auto) 0.1 0.0-0.1 10^3/uL Immature Granulocyte # (Auto) 0.1 0.0-0.1 10^3/uL Glucose Level 85 70-105 MG/DL Physical Exam: General - Alert and oriented, no apparent distress Abdomen - Soft, appropriately tender to palpation, non-distended, fundus firm at umbilicus Extremities - no edema, negative Matt's bilaterally [] Assessment: [] post- day # [], status post [] vaginal delivery. Recovering well, hemodynamically stable [] Plan: Routine care. Encourage breast feeding. Encourage ambulation. Ferrous sulfate supplementation. Plan for discharge [] Vitals - Labs Vital Signs - I&O Vital Signs Date Time Temp Pulse Resp B/P (MAP) Pulse Ox O2 Delivery O2 Flow Rate FiO2 12/29/20 08:15 36.3 75 18 104/63 (77) 98 Room Air 12/29/20 04:49 36.1 73 18 97/57 (70) 97 Room Air 12/28/20 23:15 36.1 73 18 96/53 (67) 96 Room Air 12/28/20 20:15 36.4 87 18 108/57 (74) 96 Room Air 12/28/20 17:00 36.8 75 18 112/66 (81) 96 Room Air 12/28/20 12:00 36.8 78 18 116/66 (83) 96 Room Air 12/28/20 09:45 37.0 76 18 112/67 (82) 96 Room Air I & O 12/29/20 07:00 Intake Total 1250 ml Balance 1250 ml Labs Laboratory Tests 12/29/20 05:31: White Blood Count 11.8H, Red Blood Count 3.24L, Hemoglobin 9.9L, Hematocrit 30L, Mean Corpuscular Volume 92, Mean Corpuscular Hemoglobin 31, Mean Corpuscular Hemoglobin Concent 33, Red Cell Distribution Width 12.6, Platelet Count 211, Mean Platelet Volume 9.9, Immature Granulocyte % (Auto) 1, Neutrophils (%) (Auto) 71, Lymphocytes (%) (Auto) 20, Monocytes (%) (Auto) 5, Eosinophils (%) (Auto) 2, Basophils (%) (Auto) 1, Neutrophils # (Auto) 8.4H, Lymphocytes # (Auto) 2.4, Monocytes # (Auto) 0.6, Eosinophils # (Auto) 0.2, Basophils # (Auto) 0.1, Immature Granulocyte # (Auto) 0.1, Glucose Level 85 JOSÉ ANTONIO FERREIRA DO Dec 29, 2020 08:59
--- NOTE | 2020-12-29 08:59 | History & Physical-OB ---
OB - Chief Complaint & HPI Date/Time Date of Admission: Date of Admission: Dec 27, 2020 at 20:10 Date seen by a Provider: Dec 27, 2020 Time Seen by a Provider: 20:30 Chief Complaint/History OB-Reason for Admission/Chief: Induction of Labor Hx : 9 Hx Para: 6 Expected Date of Delivery: Jan 10, 2021 Gestational Age in Weeks: 38 Gestational Age in Days: 1 Allergies and Home Medications Allergies Coded Allergies: aspirin (Verified Allergy, Unknown, 01/26/19) latex (Verified Allergy, Unknown, 01/26/19) naproxen (Verified Allergy, Unknown, 01/26/19) red dye (Verified Allergy, Unknown, 01/26/19) Home Medications Acetaminophen 500 Mg Tablet, 1,000 MG PO Q8HR Prescribed by: JOSÉ ANTONIO FERREIRA on 03/21/19 0732 Ferrous Sulfate 325 Mg Tablet, 325 MG PO DAILY, (Reported) Ibuprofen 600 Mg Tablet, 600 MG PO Q6H PRN for PAIN-MILD Prescribed by: JOSÉ ANTONIO FERREIRA on 03/21/19 0842 Vit W-Ca,Fe,FA(<1 mg) 1 Each Tablet, 1 EACH PO DAILY, (Reported) OB - History Delivery History Adverse Rxn to Tranfusion: No Social History/Family History 2nd Hand Smoke Exposure: No OB - Admission Exam Physical Exam Vitals: Vital Signs 12/29/20 08:15 Temp 36.3 Pulse 75 Resp 18 B/P (MAP) 104/63 (77) Pulse Ox 98 O2 Delivery Room Air Labs Laboratory Tests Test 12/29/20 05:31 Range/Units White Blood Count 11.8 H 4.3-11.0 10^3/uL Red Blood Count 3.24 L 3.80-5.11 10^6/uL Hemoglobin 9.9 L 11.5-16.0 g/dL Hematocrit 30 L 35-52 % Mean Corpuscular Volume 92 80-99 fL Mean Corpuscular Hemoglobin 31 25-34 pg Mean Corpuscular Hemoglobin Concent 33 32-36 g/dL Red Cell Distribution Width 12.6 10.0-14.5 % Platelet Count 211 130-400 10^3/uL Mean Platelet Volume 9.9 9.0-12.2 fL Immature Granulocyte % (Auto) 1 % Neutrophils (%) (Auto) 71 42-75 % Lymphocytes (%) (Auto) 20 12-44 % Monocytes (%) (Auto) 5 0-12 % Eosinophils (%) (Auto) 2 0-10 % Basophils (%) (Auto) 1 0-10 % Neutrophils # (Auto) 8.4 H 1.8-7.8 10^3/uL Lymphocytes # (Auto) 2.4 1.0-4.0 10^3/uL Monocytes # (Auto) 0.6 0.0-1.0 10^3/uL Eosinophils # (Auto) 0.2 0.0-0.3 10^3/uL Basophils # (Auto) 0.1 0.0-0.1 10^3/uL Immature Granulocyte # (Auto) 0.1 0.0-0.1 10^3/uL Glucose Level 85 70-105 MG/DL JOSÉ ANTONIO FERREIRA DO Dec 29, 2020 08:59
[2020-12-29] MEDS ORDERED: FERR-84 PO (09:01)
[2020-12-29] MEDS ORDERED: OXC5T PO ×2 (09:01→09:11)
[2020-12-29] MEDS ORDERED: ACET-168 PO (09:01)
[2020-12-29] MEDS ORDERED: DCS100C PO ×2 (09:03→09:11)
--- NOTE | 2020-12-29 09:04 | Discharge Inst-Women's Service ---
Discharge Inst-Women's Serv Depart Medication/Instructions New, Converted or Re-Newed RX: Transmitted to Pharmacy Final Diagnosis gestional diabetes precipitous delivery induction 38 weeks non reactive NST advanced maternal age Problems Reviewed?: Yes Consults/Follow Up Additional Follow Up: Yes (6 week for pp exam) Activity Activity: Activity as Tolerated Driving Instructions: You May Drive NO SMOKING: NO SMOKING Nothing Inside Vagina: No Douching, No [place], No Tampons Diet Discharge Diet: No Restrictions Symptoms to Report to : Swelling Increased, Bleeding Excessive, Pain Increased, Fever Over 101 Degrees F, Vaginal Bleeding Increase, Cramps in Feet or Legs, Vaginal Discharge Foul For Any Problems or Questions: Contact Your Physician JOSÉ ANTONIO FERREIRA DO Dec 29, 2020 09:04
[2020-12-29] MEDS ORDERED: IBUP-1773 PO ×2 (09:06→09:11)
[2020-12-29] MEDS ORDERED: ACET-93 PO (09:11)
[2020-12-29] MEDS ORDERED: COVID-19 VACC,MRNA(MODERNA)/PF 100 MCG/0.5 ML VIAL IM ONE (10:45)
[2020-12-29 12:30] VITALS: BP 104/63
== END 2020-12-29 12:30 | disposition home or self-care (01) | DRG 807 ==
LOC: LDRP 20:10
PROVIDERS: ADMIT Obstetrics & Gynecology; ATTEND Obstetrics & Gynecology
PROC: 10E0XZZ Delivery of Products of Conception, External Approach (ICD-10-PCS; principal; 2020-12-28)
DX: O80 Encounter for full-term uncomplicated delivery (principal); Z37.0 Single live birth; Z3A.39 39 weeks gestation of pregnancy
CPT/HCPCS: 36415; 82947; 85025; 86850; 86900; 86901